=== PATIENT | female | born 1990 | race Caucasian/White ===

== ENCOUNTER 2021-03-16 20:13 | Emergency (ER) | payer SELFPAY ==
[2021-03-16 22:21] VITALS: BP 108/56
[2021-03-16] MEDS ORDERED: HYDROcodone/ACETAMINOPHEN 5-325 MG TAB PO ONE (22:29)
[2021-03-16] MEDS ORDERED: IBUPROFEN 600 MG TAB PO ONE (22:29)
[2021-03-16] MEDS ORDERED: TETANUS,DIPH,PERTUSS(ACELL) VACCINE 0.5 ML SYRINGE IM ONE (22:30)
[2021-03-16] MEDS ORDERED: NEOMY 3.5 MG/BACIT 400 UNITS/POLY B 5000 UNITS/GM OINT PACKET TP ONE (22:30)
[2021-03-16] MEDS ORDERED: ONDANSETRON 4 MG ODT TAB PO ONE (22:30)
--- NOTE | 2021-03-16 22:56 | XRay Report ---
Right wrist-3 views Right hand-3 views INDICATION: dog bite. COMPARISON: None. IMPRESSION: No acute osseous abnormality. Mild soft tissue irregularity along the dorsum of the ding d/wrist with no radiopaque foreign body or significant laceration. No subcutaneous gas. Normal align ment. No significant DJD. Signer Name: Otoniel Post MD Signed: 03/16/2021 10:51 PM Workstation Name: [id number]
--- NOTE | 2021-03-16 23:12 | Emergency Department Report ---
ED General Adult HPI - General Chief complaint: Animal Bite Stated complaint: DOG BITE RT HAND Time Seen by Provider: 03/16/21 23:06 Source: patient, EMS Mode of arrival: Ambulatory Limitations: No Limitations - History of Present Illness Initial comments: Patient is a 30-year-old female who presents status post dog bite to the right hand and the right upper arm x1. Patient states her dog bit her on hand and arm not sure why. Animal control were called out the scene. Dog is in quarantine. Patient states all shots were up-to-date for dog. all bleeding was controlled by direct pressure self applied at home, pt did arrive via ambulance. she is a/o x 3, ambulatory with steady gait. pt advised unsure of last Tetanus shot. Severity scale (0 -10): 8 - Related Data Home Medications Medication Instructions Recorded Confirmed Last Taken Vit-Fe Fumar-FA [ 1 tab PO QDAY 12/24/15 12/24/15 12/23/15 20:00 Vitamin] 1 Previous Rx's Medication Instructions Recorded Last Taken Type Ibuprofen [Motrin 600 MG tab] 600 mg PO Q6H #30 tablet 12/25/15 Unknown Rx oxyCODONE /ACETAMINOPHEN [Percocet 2 tab PO Q4H #30 tablet 12/25/15 Unknown Rx 5/325 mg] Amoxicillin/Potassium Clav 1 each PO BID 7 Days #14 tablet 03/16/21 Unknown Rx [Augmentin 875-125 Tablet] Neomycin/Bacitracin/Polymyxinb 1 applicatio TP BID #1 tube 03/16/21 Unknown Rx [Triple Antibiotic Ointment] traMADoL [Ultram] 50 mg PO Q6HR PRN #12 tablet 03/16/21 Unknown Rx Allergies Allergy/AdvReac Type Severity Reaction Status Date / Time No Known Allergies Allergy Verified 12/24/15 10:23 ED Review of Systems ROS: Stated complaint: DOG BITE RT HAND Other details as noted in HPI Constitutional: denies: chills, fever Eyes: denies: eye pain, eye discharge, vision change ENT: denies: ear pain, throat pain Respiratory: denies: cough, shortness of breath, wheezing Cardiovascular: denies: chest pain, palpitations Endocrine: no symptoms reported Gastrointestinal: denies: abdominal pain, nausea, diarrhea Genitourinary: denies: urgency, dysuria, discharge Musculoskeletal: denies: back pain, joint swelling, arthralgia Skin: other (puncture ,dog bite, wounds right dorsa hand, right posterior upper arm puncture wound x 1) Neurological: denies: headache, weakness, paresthesias, vertigo Psychiatric: denies: anxiety, depression Hematological/Lymphatic: denies: easy bleeding, easy bruising ED Past Medical Hx - Past Medical History Previous Medical History?: No Hx Hypertension: No Hx Congestive Heart Failure: No Hx Diabetes: No Hx Deep Vein Thrombosis: No Hx Renal Disease: No Hx Sickle Cell Disease: No Hx Seizures: No Hx Asthma: No Hx COPD: No Hx HIV: No - Surgical History Past Surgical History?: No - Social History Smoking Status: Former Smoker - Medications Home Medications: Home Medications Medication Instructions Recorded Confirmed Last Taken Type Vit-Fe Fumar-FA [ 1 tab PO QDAY 12/24/15 12/24/15 12/23/15 20:00 History Vitamin] 1 Ibuprofen [Motrin 600 MG tab] 600 mg PO Q6H #30 tablet 12/25/15 Unknown Rx oxyCODONE /ACETAMINOPHEN [Percocet 2 tab PO Q4H #30 tablet 12/25/15 Unknown Rx 5/325 mg] Amoxicillin/Potassium Clav 1 each PO BID 7 Days #14 tablet 03/16/21 Unknown Rx [Augmentin 875-125 Tablet] Neomycin/Bacitracin/Polymyxinb 1 applicatio TP BID #1 tube 03/16/21 Unknown Rx [Triple Antibiotic Ointment] traMADoL [Ultram] 50 mg PO Q6HR PRN #12 tablet 03/16/21 Unknown Rx ED Physical Exam - General Limitations: No Limitations General appearance: alert, in no apparent distress - Head Head exam: Present: normocephalic, normal inspection - Eye Eye exam: Present: normal appearance, PERRL, EOMI Pupils: Present: normal accommodation - ENT ENT exam: Present: mucous membranes moist - Neck Neck exam: Present: normal inspection, full ROM. Absent: tenderness - Respiratory Respiratory exam: Present: normal lung sounds bilaterally. Absent: respiratory distress, wheezes, stridor - Cardiovascular Cardiovascular Exam: Present: regular rate, normal rhythm, normal heart sounds. Absent: systolic murmur, diastolic murmur, rubs, gallop - GI/Abdominal GI/Abdominal exam: Present: soft, normal bowel sounds. Absent: distended, tenderness - Rectal Rectal exam: Present: deferred - Extremities Exam Extremities exam: Present: full ROM, normal capillary refill - Expanded Upper Extremity Exam Right Upper Arm exam: Present: abrasion, other (puncture woud x 1 , rom intact no nerver tendon, or muscle damage, no deformity) Elbow exam: Present: full ROM. Absent: tenderness Hand Wrist exam: Present: full ROM, tenderness, abrasion, other (puncture wound x 2, dorsal hand rom intact sort supervisor <3 sec bilat, ). Absent: deformity, crepidus, erythema Neuro motor exam: Present: wrist extension intact, thumb opposition intact, thumb IP flexion intact, thumb adduction intact, fingers 2-5 abduction intact Neurosensory exam: Present: radial nerve intact Vascular: Present: normal capillary refill, radial pulse, brachial pulse - Back Exam Back exam: Present: normal inspection, full ROM - Neurological Exam Neurological exam: Present: alert, oriented X3, reflexes normal. Absent: motor sensory deficit - Expanded Neurological Exam Expanded Patient oriented to: Present: person, place, time Speech: Present: fluid speech Motor strength exam: RUE: 5, LUE: 5 DTR: bicep (R): 2+, bicep (L): 2+, tricep (R): 2+, tricep (L): 2+ Best Eye Response ([place]win): (4) open spontaneously Best Motor Response (Erlin): (6) obeys commands Best Verbal Response (Erlin): (5) oriented Erlin Total: 15 - Psychiatric Psychiatric exam: Present: normal affect, normal mood - Skin Skin exam: Present: warm, dry, normal color, other (puncture wounds as above ). Absent: rash ED Course Vital Signs 03/16/21 22:20 Temperature 98.1 F Pulse Rate 71 Respiratory 18 Rate Blood Pressure 108/56 [Right] O2 Sat by Pulse 99 Oximetry ED Medical Decision Making - Radiology Data Radiology results: report reviewed, image reviewed Ordering Physician: YARELI CHILDRESS Date of Service: 03/16/21 Procedure(s): XR wrist 3+V RT Accession Number(s): [id number] cc: YARELI CHILDRESS Fluoro Time In Minutes: Right wrist-3 views Right hand-3 views INDICATION: dog bite. COMPARISON: None. IMPRESSION: No acute osseous abnormality. Mild soft tissue irregularity along the dorsum of the hand/wrist with no radiopaque foreign body or significant laceration. No subcutaneous gas. Normal alignment. No significant DJD. Signer Name: Otoniel Post MD Signed: 03/16/2021 10:51 PM Workstation Name: [id number] Transcribed By: ABISAI Dictated By: Otoniel Post MD Electronically Authenticated By: Otoniel Post MD Signed Date/Time: 03/16/212250 DD/ 49 TD/TT: Date of Service: 03/16/21 Procedure(s): XR hand 3+V RT Accession Number(s): [id number] cc: YARELI CHILDRESS Fluoro Time In Minutes: Right wrist-3 views Right hand-3 views INDICATION: dog bite. COMPARISON: None. IMPRESSION: No acute osseous abnormality. Mild soft tissue irregularity along the dorsum of the hand/wrist with no radiopaque foreign body or significant laceration. No subcutaneous gas. Normal alignment. No significant DJD. Signer Name: Otoniel Post MD Signed: 03/16/2021 10:51 PM Workstation Name: [id number] Transcribed By: ABISAI Dictated By: Otoniel Post MD Electronically Authenticated By: Otoniel Post MD Signed Date/Time: 03/16/212250 DD/ 49 TD/TT: - Medical Decision Making X-rays negative for fracture no foreign bodies. Wound care with copious soap and water, bacitracin bandages clean. Tetanus diphtheria ordered Augmentin p.o., hydrocodone for pain. 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 pt given wound care and follow up instructions, including when to return to ed for symptoms of infection. Critical care attestation.: If time is entered above; I have spent that time in minutes in the direct care of this critically ill patient, excluding procedure time. ED Disposition Clinical Impression: Dog bite of right hand Qualifiers: Encounter type: initial encounter Qualified Code(s): S61.451A - Open bite of right hand, initial encounter; W54.0XXA - Bitten by dog, initial encounter Dog bite of right upper extremity Qualifiers: Encounter type: initial encounter Qualified Code(s): S41.151A - Open bite of right upper arm, initial encounter; W54.0XXA - Bitten by dog, initial encounter Disposition: TO HOME OR SELFCARE Is pt being admited?: No Does the pt Need Aspirin: No Condition: Stable Instructions: Animal Bite, Adult, [id number], Wound Care, Adult Additional Instructions: wash wounds with soap and water and apply dressing changes 2 x daily, take all antibiotics as prescribed, symptoms of infection as discussed and agreed. Prescriptions: Amoxicillin/Potassium Clav [Augmentin 875-125 Tablet] 1 each PO BID 7 Days #14 tablet Neomycin/Bacitracin/Polymyxinb [Triple Antibiotic Ointment] 1 applicatio TP BID #1 tube traMADoL [Ultram] 50 mg PO Q6HR PRN #12 tablet PRN Reason: Pain Referrals: [facility] [Provider Group] - 3-5 Days Forms: Work/School Release Form(ED) Time of Disposition: 23:59
[2021-03-16] MEDS ORDERED: AMOXICILLIN/K CLAV 875/125MG TAB PO ONE (23:13)
== END 2021-03-17 02:16 | disposition home or self-care (01) ==
LOC: ED 20:13
DX: S61.451A Open bite of right hand, initial encounter (principal); S41.151A Open bite of right upper arm, initial encounter; Z87.891 Personal history of nicotine dependence; Z79.899 Other long term (current) drug therapy; W54.0XXA Bitten by dog, initial encounter; Y93.89 Activity, other specified; Y92.89 Other specified places as the place of occurrence of the external cause; Y99.8 Other external cause status
CPT/HCPCS: 99283

== ENCOUNTER 2021-07-18 21:14 | Emergency (ER) | payer SELFPAY | END 2021-07-18 22:44 | disposition left against medical advice (07) | LOC: ED 21:14 | DX: R20.0 Anesthesia of skin (principal); Z53.21 Procedure and treatment not carried out due to patient leaving prior to being seen by health care provider ==

== ENCOUNTER 2021-07-18 23:45 | Emergency (ER) | payer OTHER ==
[2021-07-18 23:51] VITALS: BP 104/50
[2021-07-18] MEDS ORDERED: ACETAMINOPHEN 500 MG TAB PO ONE (23:56)
--- NOTE | 2021-07-19 00:50 | Emergency Department Report ---
ED General Adult HPI - General Chief complaint: Earache Stated complaint: EAR INFECTION Source: patient Mode of arrival: Ambulatory Limitations: No Limitations - History of Present Illness Initial comments: Patient is a 30-year-old male female with no past medical history presents to the ED with complaint of acute onset persistent severe nontraumatic right ear pain for the last 2 days, worse in the last 12 hours. Patient also complains of nausea and persistent headache. Patient states that she has not been able to sleep because of worsening pain in the last 6 hours. Patient states that she has been taking [id number]-xyn-[id number] pain medications with no relief. Patient denies dizziness, syncope, hearing loss, vomiting, sore throat, nasal and sinus congestion, fever, chills, cough or change in vision and lightheadedness. MD Complaint: Right ear pain -: Sudden, days(s) (2) Location: face Radiation: non-radiation Severity scale (0 -10): 10 Quality: aching, sharp Consistency: constant Improves with: none Worsens with: none Associated Symptoms: denies other symptoms, headaches, nausea/vomiting. denies: confusion, chest pain, cough, diaphoresis, fever/chills, loss of appetite, malaise, rash, seizure, shortness of breath, syncope, weakness Treatments Prior to Arrival: none - Related Data Home Medications Medication Instructions Recorded Confirmed Last Taken Vit-Fe Fumar-FA [ 1 tab PO QDAY 12/24/15 12/24/15 12/23/15 20:00 Vitamin] 1 Previous Rx's Medication Instructions Recorded Last Taken Type oxyCODONE /ACETAMINOPHEN [Percocet 2 tab PO Q4H #30 tablet 12/25/15 Unknown Rx 5/325 mg] Neomycin/Bacitracin/Polymyxinb 1 applicatio TP BID #1 tube 03/16/21 Unknown Rx [Triple Antibiotic Ointment] Ketorolac [Toradol] 10 mg PO Q6H PRN #14 tablet 03/21/21 Unknown Rx Amoxicillin/Potassium Clav 1 each PO Q12H 7 Days #20 tablet 07/19/21 Unknown Rx [Augmentin 875-125 Tablet] Ibuprofen [Motrin 600 MG tab] 600 mg PO Q6H #30 tablet 07/19/21 Unknown Rx traMADoL [Ultram 50 MG tab] 50 mg PO Q6HR PRN #12 tablet 07/19/21 Unknown Rx Allergies Allergy/AdvReac Type Severity Reaction Status Date / Time No Known Allergies Allergy Verified 12/24/15 10:23 ED Review of Systems ROS: Stated complaint: EAR INFECTION Other details as noted in HPI Constitutional: denies: chills, fever, malaise Eyes: denies: eye pain, eye discharge, vision change ENT: ear pain (right ear pain). denies: throat pain Respiratory: denies: cough, shortness of breath, wheezing Cardiovascular: denies: chest pain, palpitations Endocrine: no symptoms reported Gastrointestinal: nausea. denies: abdominal pain, vomiting, diarrhea Genitourinary: denies: urgency, dysuria, discharge Musculoskeletal: denies: back pain, joint swelling, arthralgia Skin: denies: rash, lesions Neurological: headache. denies: weakness, paresthesias Psychiatric: denies: anxiety, depression Hematological/Lymphatic: denies: easy bleeding, easy bruising ED Past Medical Hx - Past Medical History Previous Medical History?: No Hx Hypertension: No Hx Congestive Heart Failure: No Hx Diabetes: No Hx Deep Vein Thrombosis: No Hx Renal Disease: No Hx Sickle Cell Disease: No Hx Seizures: No Hx Asthma: No Hx COPD: No Hx HIV: No - Surgical History Past Surgical History?: No - Social History Smoking Status: Former Smoker - Medications Home Medications: Home Medications Medication Instructions Recorded Confirmed Last Taken Type Vit-Fe Fumar-FA [ 1 tab PO QDAY 12/24/15 12/24/15 12/23/15 20:00 History Vitamin] 1 oxyCODONE /ACETAMINOPHEN [Percocet 2 tab PO Q4H #30 tablet 12/25/15 Unknown Rx 5/325 mg] Neomycin/Bacitracin/Polymyxinb 1 applicatio TP BID #1 tube 03/16/21 Unknown Rx [Triple Antibiotic Ointment] Ketorolac [Toradol] 10 mg PO Q6H PRN #14 tablet 03/21/21 Unknown Rx Amoxicillin/Potassium Clav 1 each PO Q12H 7 Days #20 tablet 07/19/21 Unknown Rx [Augmentin 875-125 Tablet] Ibuprofen [Motrin 600 MG tab] 600 mg PO Q6H #30 tablet 07/19/21 Unknown Rx traMADoL [Ultram 50 MG tab] 50 mg PO Q6HR PRN #12 tablet 07/19/21 Unknown Rx ED Physical Exam - General Limitations: No Limitations General appearance: alert, in no apparent distress - Head Head exam: Present: atraumatic, normocephalic, normal inspection - Eye Eye exam: Present: normal appearance, PERRL, EOMI Pupils: Present: normal accommodation - ENT ENT exam: Present: normal orophraynx, mucous membranes moist, other (erythematous buldging right tympanic membrane) - Neck Neck exam: Present: normal inspection, full ROM - Respiratory Respiratory exam: Present: normal lung sounds bilaterally. Absent: respiratory distress, wheezes, rales, rhonchi, chest wall tenderness, accessory muscle use, prolonged expiratory - Cardiovascular Cardiovascular Exam: Present: regular rate, normal rhythm, normal heart sounds. Absent: systolic murmur, diastolic murmur, rubs, gallop - GI/Abdominal GI/Abdominal exam: Present: soft, normal bowel sounds. Absent: tenderness, guar ding, rebound, hyperactive bowel sounds, hypoactive bowel sounds, organomegaly - Extremities Exam Extremities exam: Present: normal inspection, full ROM, normal capillary refill - Back Exam Back exam: Present: normal inspection, full ROM. Absent: tenderness, CVA tenderness (R), CVA tenderness (L), muscle spasm, paraspinal tenderness - Neurological Exam Neurological exam: Present: alert, oriented X3, CN II-XII intact, normal gait, reflexes normal - Psychiatric Psychiatric exam: Present: normal affect, normal mood - Skin Skin exam: Present: warm, dry, intact, normal color. Absent: rash ED Course Vital Signs 07/18/21 23:51 Temperature 97.7 F Pulse Rate 61 Respiratory 18 Rate Blood Pressure 104/50 O2 Sat by Pulse 99 Oximetry ED Medical Decision Making - Medical Decision Making This is a 30-year-old male female with no past medical history presents to the ED with complaint of acute onset persistent severe nontraumatic right ear pain for the last 2 days, worse in the last 12 hours. Patient also complains of nausea and persistent headache. Patient states that she has not been able to sleep because of worsening pain in the last 6 hours. Patient states that she has been taking lyfe-pir-[id number] pain medications with no relief. In the ED, patient is alert and oriented x3 and is not in any distress. Patient was treated for pain in the ED and on reevaluation, patient felt better and was discharged home on pain medication and antibiotics. Patient was advised to follow-up with her primary care physician in 7 to 10 days for reevaluation return to the ED immediately if symptoms get worse. - Differential Diagnosis otitis media; URI; Critical care attestation.: If time is entered above; I have spent that time in minutes in the direct care of this critically ill patient, excluding procedure time. ED Disposition Clinical Impression: Acute otitis media with effusion of right ear Disposition: HOME / SELF CARE / HOMELESS Is pt being admited?: No Does the pt Need Aspirin: No Condition: Stable Instructions: Ear Drops, Adult, [id number]-[id number], Otitis Media, Adult, [id number]-[id number] Additional Instructions: Take medication with food, drink plenty of fluids and follow-up with your primary care physician in 7 to 10 days for reevaluation. Return to the ED immediately if symptoms get worse. Prescriptions: Amoxicillin/Potassium Clav [Augmentin 875-125 Tablet] 1 each PO Q12H 7 Days #20 tablet Ibuprofen [Motrin 600 MG tab] 600 mg PO Q6H #30 tablet traMADoL [Ultram 50 MG tab] 50 mg PO Q6HR PRN #12 tablet PRN Reason: Pain Referrals: [facility] [Provider Group] - 3-5 Days Time of Disposition: 00:50 Print Language: HUNGARIAN
== END 2021-07-19 01:00 | disposition home or self-care (01) ==
LOC: ED 23:45
DX: H65.191 Other acute nonsuppurative otitis media, right ear (principal); Z87.891 Personal history of nicotine dependence; Z79.899 Other long term (current) drug therapy
CPT/HCPCS: 99282